=== PATIENT | male | born 1960 | race Caucasian/White ===

== ENCOUNTER 2019-02-09 17:50 | Emergency (ER) | payer BC, OTHER ==
[~2019-02-09 17:50] MED LIST: Sodium Chloride 0.9% 500 ML BAG ONE; Sterile Water Irrigation 250 ML BOT ONE
--- NOTE | 2019-02-09 18:18 | RAD ---
EXAM: 3 views of the left middle finger HISTORY: Middle finger trauma with pain COMPARISON: None FINDINGS: There is a fracture of the midportion of the middle phalanx of the middle finger with one s haft width displacement. No dislocation is seen. IMPRESSION: Middle phalanx fracture
[2019-02-09 18:21] LABS: #Basophils 0.1 thou/uL (0.0-0.2); #Eosinphils 0.2 thou/uL (0.0-0.7); #Lymphocytes 4.2 thou/uL (1.20-3.40); #Monocytes 0.7 thou/uL (0.11-0.59); #Neutrophils 3.6 thou/uL (1.40-6.50); %Basophils 1.1 % (0.0-1.0); %Eosinophils 2.5 % (0.0-10.0); %Lymphocytes 47.5 % (21.0-51.0); %Monocytes 7.9 % (0.0-10.0); Hemoglobin 14.8 g/dL (14.0-18.0); Mean Corpuscular HGB CONC 33.7 g/dL (32.0-36.0); Mean Corpuscular Hemoglobin 32.4 pg (27.0-31.0); Mean Corpuscular Volume 96.2 fL (78.0-98.0); Mean Platelet Volume 7.9 fL (7.4-10.4); Platelet Count 227 thou/uL (130-400); RBC Distribution Width 12.5 % (11.5-14.5); Red Blood Cell (RBC) Count 4.56 mill/uL (4.70-6.10); White Blood Cell (WBC) Count 8.9 thou/uL (4.8-10.8)
[2019-02-09] MEDS ORDERED: Fentanyl 100 MCG/2 ML VIAL ONE (18:22)
[2019-02-09 18:29] LABS: Anion Gap 16 mmol/L (10-20); BUN (Urea Nitrogen) 8 mg/dL (8.4-25.7); Calc. Creatinine Clearance 0 mL/min (70-130); Calcium 8.8 mg/dL (7.8-10.44); Carbon Dioxide 21 mmol/L (22-29); Chloride 108 mmol/L (98-107); Estimated GFR-MDRD 56; Glucose 130 mg/dL (70-105); Sodium 141 mmol/L (136-145)
[2019-02-09] MEDS ORDERED: Clindamycin/D5W 900 mg/50 ml Premix Bag ONE (19:15)
== END 2019-02-09 20:20 | disposition short-term general hospital (02) ==
LOC: MADERS 17:50
DX: S68.113A Complete traumatic metacarpophalangeal amputation of left middle finger, initial encounter (principal); F17.210 Nicotine dependence, cigarettes, uncomplicated; Z79.1 Long term (current) use of non-steroidal anti-inflammatories (NSAID); Z79.899 Other long term (current) drug therapy; W45.8XXA Other foreign body or object entering through skin, initial encounter
CPT/HCPCS: 80048; 85025; 96365; 96366; 96368; 96375; J3010; J3370; J3490; J7050